=== PATIENT | female | born 1995 | race Asian ===

== ENCOUNTER 2025-01-18 08:06 | Emergency (ER) | payer SELFPAY ==
[~2025-01-18] VITALS: Ht 172.7 cm; Wt 63.5 kg
[~2025-01-18 08:06] MED LIST: MEDROL4 M2 PO
[2025-01-18] MEDS ORDERED: IBUPROFEN 400 MG TAB ONE (09:24)
[2025-01-18] MEDS ORDERED: ACETAMINOPHEN 325 MG TAB ONE (09:24)
[2025-01-18 09:27] VITALS: RESP 15; O2SAT 100
[2025-01-18] MEDS: IBUPROFEN 400 MG TAB PO ONE (09:34)
[2025-01-18] MEDS: ACETAMINOPHEN 325 MG TAB PO ONE (09:36)
[2025-01-18 10:07] VITALS: PULSE 103; TEMP 100.7
== END 2025-01-18 10:08 | disposition home or self-care (01) ==
LOC: EDBD 08:06 → ER 08:44
DX: R05.9 Cough, unspecified (principal); B34.9 Viral infection, unspecified; R51.9 Headache, unspecified; R53.81 Other malaise
CPT/HCPCS: 99284